=== PATIENT | female | born 1985 | race Caucasian/White ===

== ENCOUNTER 2024-02-20 11:40 | Inpatient (IN) | payer OTHER ==
--- OUTSIDE RECORDS SUMMARY | 2024-02-20 14:44 | XMS REPORT | Continuity of Care Document ---
Author Name Unknown Address [address] [place] [address] [address] [id number] [facility] thconnect Address [address] [facility] [address] [place] [address] Care Team Providers Care Associate Medical Director Name Role Phone Dr. Rubens Prince Attending Clinician Sayda steele Encounters Start Date/Time End Date/Time Encounter Type Admission Type Attending Clinicians Care Facility Care Department Encounter ID Source 2023-03-25 00:00:00 2023-03-25 00:00:00 Outpatient Rubens Prince [facility] [id number] 9 [facility] Results Test Description Test Time Test Comments Results Resul t Comments Source US OB <14 WEEKS 2016-07-23 21:27:00 [facility] [place] [id number] IMAGING REPORTPatient Name: Lavell PÉREZ of Service: [id number]: 31 Sex: F Order #: [id number] Room: ERDOB: 1985 X-Ray Number: [id number] Record Number: [id number] Hospital Number: [id number] Physician: Phyllis MONTGOMERY Physician: GIAN BARROW ultrasound, first trimester study, transabdominal only, 2045 hours07/23/2016HISTORY: Early , severe pelvic painFINDINGS: The uterus is anteverted measuring 9 cm. There is a singleintrauterine gestational sac, in the body/fundus. EGA based on sac size isapproximately 5 weeks 1 day.However, no pole or yolk sac is seen. No heart motion is seen. pole and yolk sac are typically visible on transabdominal imaging by5 weeks EGA.The cervix is closedBoth ovaries are normal size and both show normal Doppler flowNo adnexal cyst or mass is seen and there is no free fluid. No hemorrhageis seen.IMPRESSION: This may be a blighted ovum, although very early live IUPcannot be entirely ruled out. Recommend clinical follow-up with repeatimaging as indicated.Electronically Signed By: Kirk Goldman M.D., 07/23/2016 9:25 PMLegally authenticated by TANIA RAMOS 2016-07-23 21:25:11
[2024-02-20 15:19] VITALS: BMI 40.3
--- NOTE | 2024-02-20 15:27 | P.HP ---
Certification for Inpatient Patient admitted to: Inpatient With expected LOS: >2 Midnights Patient will require the following post-hospital care: None Practitioner: I am a practitioner with admitting privileges, knowledge of patient current condition, hospital course, and medical plan of care. Services: Services provided to patient in accordance with Admission requirements found in Title 42 Section 412.3 of the Code of Federal Regulations Patient History Date of Service: 02/20/24 Primary Care Provider: Debbie Reason for admission: septic arthritis History of Present Illness: Patient is an office patient of [employer] She has a history of HTN and hypothyroidism. She was in the office this past Tuesday with pain and swelling of the right elbow. The patient was urged to be admitted. Unfortunately she was looking forward to picking up her daughter in [facility]. She left against my advice. Was started on bactrim and cipro. The intention was to admit her today if there was no improvement. The patient was directed admitted she has pain, swelling and more warmth on the exam today. Pain has also increased Allergies No Known Allergies Allergy (Verified 02/20/24 15:12) Home Medications: Levothyroxine Sodium 200 mcg PO [id number] 02/20/24 lisinopriL [Lisinopril] 10 mg PO DAILY 02/20/24 - Past Medical/Surgical History Has patient received pneumonia vaccine in the past: No Diabetic: No -: Thyroid Cancer -: Hypothroid -: Thyroidectomy 2005 - Social History Smoking Status: Never smoker Alcohol use: Yes CD- Drugs: No Caffeine use: Yes Place of Residence: Home Review of Systems 10-point ROS is otherwise unremarkable Musculoskeletal: Arm Pain (right elbow pain ) Physical Examination - Physical Exam General: Alert, In no apparent distress HEENT: Atraumatic, PERRLA, Mucous membr. moist/pink, EOMI, Sclerae nonicteric Neck: Supple, 2+ carotid pulse no bruit, No LAD, Without JVD or thyroid abnormality Respiratory: Clear to auscultation bilaterally, Normal air movement Cardiovascular: Regular rate/rhythm, Normal S1 S2 Gastrointestinal: Normal bowel sounds, No tenderness Musculoskeletal: Swelling (right elbow and forearm ), Erythema (right elbow and forearm ), Tenderness (right elbow and forearm ), Warmth (right elbow and forearm ) Integumentary: No rashes Neurological: Normal gait, Normal speech, Normal strength at 5/5 x4 extr, Normal tone, Normal affect Lymphatics: No axilla or inguinal lymphadenopathy Assessment and Plan - Problems (Diagnosis) (1) Septic arthritis Current Visit: Yes Status: Acute Plan: will start her on vanco, cipro and cefepime. Per the [place] guide 25% are gm -ve. However MRSA may be positive. will check blood cultures. Start her on fluids. There is a consult to Dr. Mahoney. Will also check a ultrasound to rule out any compartment syndrome Qualifiers: Septic arthritis location: elbow Septic arthritis organism: due to unspecified organism Laterality: right Qualified Code(s): M00.9 - Pyogenic arthritis, unspecified (2) Essential (primary) hypertension Current Visit: Yes Status: Chronic Plan: restart lisinopril and adjust as needed (3) Hypothyroidism, unspecified Current Visit: Yes Status: Chronic Plan: restart her regular dosage of levothyroxine Qualifiers: Hypothyroidism type: unspecified Qualified Code(s): E03.9 - Hypothyroidism, unspecified Discharge Plan: Home Plan to discharge in: Greater than 2 days - Advance Directives Does patient have a Living Will: No Does patient have a Durable POA for Healthcare: No - Code Status/Comfort Care Code Status Assessed: Yes Code Status: Full Code Physician Review: Patient Assessed, Agree with Above Assessment and Plan Critical Care: No Time Spent Managing Pts Care (In Minutes): 75
[2024-02-20] MEDS: ACETAMINOPHEN 500 MG TAB PO SCH (16:00)
[2024-02-20 16:04] LABS: Absolute Basophils 0.1 K/uL (0-0.5); Absolute Eosinophils 0.1 K/uL (0-0.5); Absolute Lymphocytes (CBC) 1.3 K/uL (0.7-4.9); Absolute Monocytes 0.6 K/uL (0.1-1.3); Absolute Neutrophil 5.9 K/uL (1.8-8.0); Basophils % 0.7 % (0-1.3); Eosinophils % 1.3 % (0-4.4); Hemoglobin 12.2 g/dL (12.0-15.0); Lymphocytes % 16.1 % (15.3-44.8); MCH 30.8 pg (27.0-35.0); MCV 90.5 fL (80-100); Monocytes % 7.1 % (3.3-12.3); Neutrophils % 74.8 % (41.7-73.7); Platelets 243 thou/uL (152-406); RBC Red Blood Cell Count 3.98 M/uL (3.86-4.86); Red Cell Distribution Width 12.9 % (12.1-15.2)
[2024-02-20 16:19] LABS: Albumin 3.2 g/dL (3.4-5.0); Albumin/Globulin Ratio 0.8 (1.1-1.8); Anion Gap 9.6 mEq/L (5.0-15.0); Bilirubin Total 0.5 mg/dL (0.2-1.0); Globulin 3.9 g/dL (2.3-3.5); Potassium 3.6 mEq/L (3.5-5.1); Protein, Total 7.1 g/dL (6.4-8.2)
[2024-02-20] MEDS: HYDROMORPHONE HCL 0.5 MG/0.5 ML INJ IV PRN (16:38)
[2024-02-20] MEDS: NA CHLORIDE 0.9% 1,000 ML IV SCH (16:39)
[2024-02-20] MEDS: IBUPROFEN 600 MG TAB PO SCH (16:39)
[2024-02-20] MEDS: CEFEPIME 2 GM in NA CHLORIDE 0.9% 100 ML IV SCH (16:39)
[2024-02-20] MEDS: CIPROFLOXACIN 400mg IV 400 MG/200 ML BAG IV SCH (16:40)
[2024-02-20] MEDS ORDERED: CEFEPIME 2 GM in NA CHLORIDE 0.9% 100 ML IV SCH (17:00)
[2024-02-20] MEDS: VANCOMYCIN 3 GM in NA CHLORIDE 0.9% 500 ML IVPB ONE (17:44)
[2024-02-21] MEDS: VANCOMYCIN 2.25 GM in NA CHLORIDE 0.9% 500 ML IVPB SCH (05:40)
[2024-02-21] MEDS: LEVOTHYROXINE SOD 0.1 MG TAB PO SCH (06:38)
[2024-02-21 07:40] LABS: Magnesium 2.1 mg/dL (1.6-2.4)
--- NOTE | 2024-02-21 08:39 | P.PN ---
Subjective Date of Service: 02/21/24 Primary Care Provider: Debbie Chief Complaint: septic arthritis Subjective: Improving Review of Systems 10-point ROS is otherwise unremarkable Musculoskeletal: Other (right elbow swelling. Improved. ) Physical Examination - Vital Signs Temperature: 97.6 F Blood Pressure: 119/58 Pulse: 74 Respirations: 16 Pulse Ox (%): 98 - Physical Exam General: Alert, In no apparent distress HEENT: Atraumatic, PERRLA, EOMI Neck: Supple, JVD not distended Respiratory: Clear to auscultation bilaterally, Normal air movement Cardiovascular: Regular rate/rhythm, Normal S1 S2 Gastrointestinal: Normal bowel sounds, No tenderness Musculoskeletal: No tenderness, Erythema (rght elbow), Warmth (right elbow) Integumentary: No rashes Neurological: Normal speech, Normal tone, Normal affect Lymphatics: No axilla or inguinal lymphadenopathy - Studies Laboratory Data (last 24 hrs) 02/21/24 02/20/24 02/20/24 06:55 15:50 15:50 WBC 7.80 Hgb 12.2 Hct 36.0 Plt Count 243 Sodium 138 Potassium 3.6 BUN 14 Creatinine 0.73 Glucose 106 Magnesium 2.1 Total Bilirubin 0.5 AST 117 H ALT 251 H Alkaline Phosphatase 120 H Assessment And Plan - Current Problems (Diagnosis) (1) Septic arthritis Current Visit: Yes Status: Acute Plan: will start her on vanco, cipro and cefepime. Per the [place] guide 25% are gm -ve. However MRSA may be positive. will check blood cultures. Start her on fluids. There is a consult to Dr. Mahoney. Will also check a ultrasound to rule out any compartment syndrome 02/20 plans for I&D today with Dr. Mahoney Qualifiers: Septic arthritis location: elbow Septic arthritis organism: due to unspecified organism Laterality: right Qualified Code(s): M00.9 - Pyogenic arthritis, unspecified (2) Essential (primary) hypertension Current Visit: Yes Status: Chronic Plan: restart lisinopril and adjust as needed (3) Hypothyroidism, unspecified Current Visit: Yes Status: Chronic Plan: restart her regular dosage of levothyroxine Qualifiers: Hypothyroidism type: unspecified Qualified Code(s): E03.9 - Hypothyroidism, unspecified Discharge Plan: Home Plan to discharge in: 48 Hours - Code Status/Comfort Care Code Status Assessed: No Physician Review: Patient Assessed, Agree with Above Assessment and Plan Critical Care: No Time Spent Managing PTS Care (In Minutes): 20
[2024-02-21] MEDS: lisinopriL 10 MG TAB PO SCH (08:49)
[2024-02-21 09:11] LABS: Absolute Eosinophils 0.1 K/uL (0-0.5); Absolute Lymphocytes (CBC) 1.2 K/uL (0.7-4.9); Absolute Monocytes 0.6 K/uL (0.1-1.3); Basophils % 0.6 % (0-1.3); Eosinophils % 2.3 % (0-4.4); Hematocrit 34.5 % (36.0-45.0); Hemoglobin 11.4 g/dL (12.0-15.0); Lymphocytes % 20.2 % (15.3-44.8); MCH 30.6 pg (27.0-35.0); MCHC 33.1 g/dL (32.0-36.0); MCV 92.3 fL (80-100); MPV 8.5 fL (7.6-11.3); Monocytes % 10.1 % (3.3-12.3); Neutrophils % 66.8 % (41.7-73.7); Platelets 215 thou/uL (152-406); RBC Red Blood Cell Count 3.74 M/uL (3.86-4.86); Red Cell Distribution Width 13.3 % (12.1-15.2)
[2024-02-21 09:14] LABS: PT Prothrombin Time 10.1 SECONDS (9.4-12.5); Protime INR 0.9
[2024-02-21 09:28] LABS: Albumin 2.8 g/dL (3.4-5.0); Albumin/Globulin Ratio 0.7 (1.1-1.8); Anion Gap 8.7 mEq/L (5.0-15.0); Bilirubin Total 0.4 mg/dL (0.2-1.0); C-Reactive Protein 67.8 mg/L (<3.00); Globulin 3.8 g/dL (2.3-3.5); Potassium 3.7 mEq/L (3.5-5.1); Protein, Total 6.6 g/dL (6.4-8.2)
[2024-02-21 09:47] LABS: Thyroid Stimulating Hormone 9.4 uIU/mL (0.358-3.740)
--- NOTE | 2024-02-21 09:56 | CON ---
Date of Consultation: 02/20/2024 Reason For Consultation: Right elbow erythema and swelling. History Of Present Illness: Tammi is a 39-year-old female who presented to the ER, who was admitted by Dr. Lewis for increased pain and swelling of the right elbow. The patient was started on p.o. ant ibiotics over the weekend for right posterior elbow swelling, erythema, and reports minimal improveme nt. Patient reports some increasing pain and swelling of her right upper extremity. She denies any numbness or tingling at this time. She denies any fever or chills. Review of Systems: As above, otherwise negative. Past Medical History: Includes hypothyroidism, thyroid cancer. Past Surgical History: Includes thyroidectomy. Medications: Levothyroxine, lisinopril. Allergies: NO KNOWN DRUG ALLERGIES. Social History: Denies tobacco, reports occasional alcohol use. Lives at home. Family History: Reviewed and noncontributory. Physical Examination: General: No apparent distress. HEENT: Normocephalic, atraumatic. Neck: Supple. Cardiovascular: Brisk cap refill to all digits. Chest: Nonlabored breathing. Abdomen: Nondistended. Psychiatric: Responsive to exam. Musculoskeletal: Right upper extremity swelling to the forearm and elbow with erythema over the medi al aspect of the elbow as well as posteriorly. Minimal fluctuance over the tip of the olecranon. Po sitive firing of EPL, FPL and intrinsics. Neurovascular: Intact distally. No proximal migration of the erythema noted. Left upper extremity functional range of motion without pain. No gross deformities. No obvious dislocations. Bilateral lower extremities, functional range of motion without pain. No gross deformities. No obvious disloc ations. Assessment And Plan: Tammi is a 39-year-old female with a right upper extremity cellulitis. I discu ssed with the patient at length the diagnosis as well as treatment plan. At this point, there is no significant fluctuance of the right upper extremity. We will proceed with conservative care includin g IV antibiotics and NSAIDs. The patient will be n.p.o. after midnight. I will re-evaluate the rodney ent in the morning. If there is increased fluctuance to the right elbow, we discussed possible I and D. The patient expressed understanding and all questions were answered. AMY/SHERIDAN Voice ID: [id number] Report ID: [id number]
--- NOTE | 2024-02-21 10:03 | RAD REPORT ---
EXAMINATION: ONE VIEW CHEST XR CLINICAL INDICATION: preop TECHNIQUE: Frontal chest projection is submitted. Examination is limited by patient positioning and t echnique. COMPARISON: No prior exam. FINDINGS: The lungs are well inflated and clear. The heart is normal in size. No displaced fractures identified . IMPRESSION: No acute intrathoracic abnormalities.
[2024-02-21] MEDS: BUPIVACAINE 0.25% PF 10 ML VIAL ONE (10:36)
[2024-02-21 10:49] LABS: Specific Gravity 1.007 (1.005-1.030)
[2024-02-21] MEDS ORDERED: FENTANYL CITR 100 MCG/2 ML ONE (11:07)
[2024-02-21] MEDS ORDERED: MIDAZOLAM HCL 2 MG/2 ML INJ ONE (11:07)
[2024-02-21] MEDS ORDERED: ONDANSETRON 4 MG/2 ML VIAL ONE (11:07)
[2024-02-21] MEDS ORDERED: LIDOCAINE 1% MPF 5 ML VIAL ONE (11:07)
[2024-02-21] MEDS ORDERED: propofoL 200 MG/20 ML VIAL IV ONE (11:07)
[2024-02-21] MEDS ORDERED: KETOROLAC 30 MG/ML INJ ONE (11:07)
--- NOTE | 2024-02-21 12:32 | P.BOP ---
Preoperative diagnosis: Right elbow infectious bursitis Postoperative diagnosis: Same Primary procedure: Incision and debridement right elbow olecranon infectious bursitis Geothermal Operations Engineer: NONE,NONE Estimated blood loss: 10 cc Specimen: Right elbow bursal tissue, wound cultures x 2 Anesthesia: General Complications: None Implants: None Fluids & blood products: Per anesthesia record Transferred to: Recovery Room Condition: Good
[2024-02-21] MEDS ORDERED: DOCUSATE NA 100 MG CAP PO PRN (12:37)
[2024-02-21] MEDS ORDERED: ACETAMINOPHEN 325 MG TABLET PO PRN (12:37)
[2024-02-21] MEDS ORDERED: ONDANSETRON 4 MG/2 ML VIAL IV PRN (12:37)
[2024-02-21] MEDS ORDERED: TRAMADOL HCL 50 MG TAB PO PRN (12:37)
[2024-02-21] MEDS: HYDROMORPHONE HCL 1 MG/ML INJ ONE (12:40)
[2024-02-21] MEDS: VANCOMYCIN 1.5 GM in NA CHLORIDE 0.9% 500 ML IVPB SCH (17:00)
--- NOTE | 2024-02-22 08:56 | P.PN ---
Subjective Date of Service: 02/22/24 Primary Care Provider: Debbie Chief Complaint: septic arthritis Subjective: Improving Review of Systems 10-point ROS is otherwise unremarkable Musculoskeletal: Other (right elbow surgical wound) Physical Examination - Vital Signs Temperature: 98.0 F Blood Pressure: 154/65 Pulse: 76 Respirations: 18 Pulse Ox (%): 96 - Physical Exam General: Alert, In no apparent distress HEENT: Atraumatic, PERRLA, EOMI Neck: Supple, JVD not distended Respiratory: Clear to auscultation bilaterally, Normal air movement Cardiovascular: Regular rate/rhythm, Normal S1 S2 Gastrointestinal: Normal bowel sounds, No tenderness Musculoskeletal: No tenderness Integumentary: No rashes Neurological: Normal speech, Normal tone, Normal affect Lymphatics: No axilla or inguinal lymphadenopathy - Studies Laboratory Data (last 24 hrs) 02/21/24 02/21/24 02/21/24 08:51 08:51 08:51 WBC 6.00 Hgb 11.4 L Hct 34.5 L Plt Count 215 PT 10.1 INR 0.90 Sodium 137 Potassium 3.7 BUN 9 Creatinine 0.53 L Glucose 110 H Total Bilirubin 0.4 AST 92 H ALT 201 H Alkaline Phosphatase 104 Assessment And Plan - Current Problems (Diagnosis) (1) Septic arthritis Current Visit: Yes Status: Acute Plan: will start her on vanco, cipro and cefepime. Per the [place] guide 25% are gm -ve. However MRSA may be positive. will check blood cultures. Start her on fluids. There is a consult to Dr. Mahoney. Will also check a ultrasound to rule out any compartment syndrome 02/21 awaiting cultures to see which antibiotics to send the patient home on Qualifiers: Septic arthritis location: elbow Septic arthritis organism: due to unspecified organism Laterality: right Qualified Code(s): M00.9 - Pyogenic arthritis, unspecified (2) Essential (primary) hypertension Current Visit: Yes Status: Chronic Plan: restart lisinopril and adjust as needed (3) Hypothyroidism, unspecified Current Visit: Yes Status: Chronic Plan: restart her regular dosage of levothyroxine Qualifiers: Hypothyroidism type: unspecified Qualified Code(s): E03.9 - Hypothyroidism, unspecified Discharge Plan: Home Plan to discharge in: 24 Hours - Code Status/Comfort Care Code Status Assessed: No Physician Review: Patient Assessed, Agree with Above Assessment and Plan Critical Care: No Time Spent Managing PTS Care (In Minutes): 20
[2024-02-22] MEDS: HYDROCODONE/APAP 7.5/325 MG TAB PO PRN (09:31)
--- NOTE | 2024-02-22 12:58 | P.PN ---
Subjective Date of Service: 02/22/24 Primary Care Provider: Debbie Chief Complaint: Status post I&D right elbow olecranon bursa Subjective: Improving Physical Examination - Vital Signs Temperature: 97.8 F Blood Pressure: 148/87 Pulse: 78 Respirations: 16 Pulse Ox (%): 99 - Physical Exam General: Alert, In no apparent distress Musculoskeletal: Other (Right elbow: Incision healing with decreased erythema; no active purulent drainage; improved swelling of the right upper extremity; neurovascular intact distally) - Studies Microbiology Data (last 24 hrs): 02/21/24 12:00 Wound - Right Elbow Gram Stain - Final 02/21/24 12:00 Wound - Right Elbow Gram Stain - Final Assessment And Plan - Plan Tammi is a 39-year-old female status post right elbow I&D postop day #1 -Continue with IV antibiotics; preliminary culture showing coagulase positive staph -Proceed with daily wound care and packing with iodoform gauze -Okay to discharge when antibiotic sensitivities return -Follow-up with Dr. Mahoney in 1 week for wound check Physician Review: Patient Assessed, Agree with Above Assessment and Plan
[2024-02-23 07:08] LABS: Absolute Basophils 0.1 K/uL (0-0.5); Absolute Eosinophils 0.2 K/uL (0-0.5); Absolute Lymphocytes (CBC) 2.1 K/uL (0.7-4.9); Absolute Monocytes 0.5 K/uL (0.1-1.3); Absolute Neutrophil 4.4 K/uL (1.8-8.0); Eosinophils % 2.2 % (0-4.4); Hematocrit 32.5 % (36.0-45.0); Hemoglobin 11.2 g/dL (12.0-15.0); Lymphocytes % 28.9 % (15.3-44.8); MCH 31.1 pg (27.0-35.0); MCHC 34.4 g/dL (32.0-36.0); MCV 90.3 fL (80-100); MPV 8.9 fL (7.6-11.3); Monocytes % 7.4 % (3.3-12.3); Neutrophils % 59.5 % (41.7-73.7); Nucleated Red Blood Cells % 0.2 % (0-0); Platelets 180 thou/uL (152-406); Red Cell Distribution Width 13.1 % (12.1-15.2)
[2024-02-23 07:22] LABS: Albumin 2.7 g/dL (3.4-5.0); Albumin/Globulin Ratio 0.8 (1.1-1.8); Bilirubin Total 0.3 mg/dL (0.2-1.0); Globulin 3.4 g/dL (2.3-3.5); Protein, Total 6.1 g/dL (6.4-8.2)
[2024-02-23 08:02] VITALS: O2SAT 98
[2024-02-23 08:50] LABS: Platelet Estimate ADEQ; White Blood Cell Scan OK (OK)
[2024-02-23 08:51] LABS: Platelets Clumped FEW FIBRIN STRANDS
[2024-02-23 09:08] LABS: Blood Morphology Comment NOT SEEN (NOT SEEN)
--- NOTE | 2024-02-23 12:59 | P.DS ---
Admission Date: 02/20/24 Discharge Date: 02/23/24 Primary Care Provider: Debbie Disposition: ROUTINE DISCHARGE Reason for Admission: Status post I&D right elbow olecranon bursa - Problems (1) Septic arthritis Current Visit: Yes Status: Acute Qualifiers: Septic arthritis location: elbow Septic arthritis organism: due to unsp ecified organism Laterality: right Qualified Code(s): M00.9 - Pyogenic arthritis, unspecified (2) Essential (primary) hypertension Current Visit: Yes Status: Chronic (3) Hypothyroidism, unspecified Current Visit: Yes Status: Chronic Qualifiers: Hypothyroidism type: unspecified Qualified Code(s): E03.9 - Hypothyroidism, unspecified Brief History of Present Illness: Patient is an office patient of [employer]. She has a history of HTN and hypothyroidism. She was in the office this past Tuesday with pain and swelling of the right elbow. The patient was urged to be admitted. Unfortunately she was looking forward to picking up her daughter in [facility]. She left against my advice. Was started on bactrim and cipro. The intention was to admit her today if there was no improvement. The patient was directed admitted she has pain, swelling and more warmth on the exam today. Pain has also increased Hospital Course: Patient was admitted for septic bursitis. She was seen by Dr. Mahoney. Had an I&D. The patient cultures grew out staph Aureus wich is multi drug sensitive. The patient is doing well. She is able to be discharged per Dr. Mahoney. The patient is sensitive to cipro and bactrim. The patient can follow up with Denzel and myself. thank you for allowing me to be part of his care. Vital Signs/Physical Exam: Temp Pulse Resp BP Pulse Ox 97.3 F 77 18 166/89 H 97 02/23/24 08:00 02/23/24 08:51 02/23/24 10:42 02/23/24 08:51 02/23/24 10:42 General: Alert, In no apparent distress HEENT: Atraumatic, PERRLA, EOMI Neck: Supple, JVD not distended Respiratory: Clear to auscultation bilaterally, Normal air movement Cardiovascular: Regular rate/rhythm, Normal S1 S2 Gastrointestinal: Normal bowel sounds, No tenderness Musculoskeletal: No tenderness Integumentary: No rashes Neurological: Normal speech, Normal tone, Normal affect Lymphatics: No axilla or inguinal lymphadenopathy Laboratory Data at Discharge: WBC 7.30 thou/uL (4.3-10.9) 02/23/24 06:53 Hgb 11.2 g/dL (12.0-15.0) L 02/23/24 06:53 Hct 32.5 % (36.0-45.0) L 02/23/24 06:53 Plt Count 180 thou/uL (152-406) 02/23/24 06:53 PT 10.1 SECONDS (9.4-12.5) 02/21/24 08:51 INR 0.90 02/21/24 08:51 Sodium 138 mEq/L (136-145) 02/23/24 06:53 Potassium 4.0 mEq/L (3.5-5.1) 02/23/24 06:53 BUN 9 mg/dL (7-18) 02/23/24 06:53 Creatinine 0.46 mg/dL (0.55-1.02) L 02/23/24 06:53 Glucose 110 mg/dL (74-106) H 02/23/24 06:53 Magnesium 2.1 mg/dL (1.6-2.4) 02/21/24 06:55 Total Bilirubin 0.3 mg/dL (0.2-1.0) 02/23/24 06:53 AST 71 U/L (15-37) H 02/23/24 06:53 ALT 149 U/L (13-56) H 02/23/24 06:53 Alkaline Phosphatase 97 U/L (45-117) 02/23/24 06:53 Home Medications: Levothyroxine Sodium 200 mcg PO [id number] 02/20/24 lisinopriL [Lisinopril] 10 mg PO DAILY 02/20/24 Ciprofloxacin HCl [Cipro] 500 mg PO BID #20 tab 02/23/24 Smz./Tmp. [Bactrim Ds 800 MG/160 MG] 1 each PO BID 10 Days #20 tab 02/23/24 New Medications: Smz./Tmp. [Bactrim Ds 800 MG/160 MG] 1 each PO BID 10 Days #20 tab Ciprofloxacin HCl [Cipro] 500 mg PO BID #20 tab Diet: Regular Activity: Ad alejandra Followup: Gómez Lewis MD [Primary Care Provider] - Time spent managing pt's care (in minutes): 30
[2024-02-23 14:06] VITALS: BP 148/96; TEMP 97.5
== END 2024-02-23 16:45 | disposition home or self-care (01) | DRG 464 ==
LOC: 2ND 14:41
PROVIDERS: ADMIT Internal Medicine; ATTEND Internal Medicine
PROC: 0JBD0ZZ Excision of Right Upper Arm Subcutaneous Tissue and Fascia, Open Approach (ICD-10-PCS; principal; 2024-02-21 11:32)
DX: M71.121 Other infective bursitis, right elbow (principal); L03.113 Cellulitis of right upper limb; I10 Essential (primary) hypertension; E89.0 Postprocedural hypothyroidism; B95.62 Methicillin resistant Staphylococcus aureus infection as the cause of diseases classified elsewhere; Z79.890 Hormone replacement therapy; Z79.899 Other long term (current) drug therapy; Z85.850 Personal history of malignant neoplasm of thyroid
CPT/HCPCS: 36415; 71045; 80053; 80202; 81025; 83036; 83735; 84439; 84443; 85025; 85610; 86140; 87040; 87070; 87075; 87077; 87186; 87205; 88304; J0692; J0744; J1171; J2003; J2250; J2405; J2704; J3010; J7030; J7040